=== PATIENT | female | born 1970 | race African-American/Black ===

== ENCOUNTER 2019-05-28 00:19 | Emergency (ER) | payer BC ==
[~2019-05-28] VITALS: Ht 175.3 cm; Wt 88.0 kg
[2019-05-28] MEDS ORDERED: EXCEDRIN MIGRA1 EAC1 PO (00:33)
[2019-05-28 01:07] LABS: ABSOLUTE NEUTROPHILS 1.6 thou/uL (1.4-8.2); BASOPHILS 1.4 % (0.0-2.0); EOSINOPHILS 5.3 % (0.0-3.0); HEMATOCRIT 38.8 % (37.0-47.0); HEMOGLOBIN 12.7 gm/dL (12.0-15.0); LYMPHOCYTES 50.1 % (24.0-44.0); MCH 28.4 pg (26.0-34.0); MCHC 32.7 g/dL (28.0-37.0); MCV 86.8 fL (80.0-100.0); PLATELET COUNT 269 thou/uL (150-400); POLYS 35.2 % (36.0-66.0); RBC 4.47 mil/uL (4.20-5.00); RDW 13.6 % (10.5-14.5); WBC 4.5 thou/uL (4.0-11.0)
[2019-05-28 01:19] LABS: ANION GAP 7 mmol/L (7-16); BUN 11 mg/dL (7-18); CALCIUM 9.2 mg/dL (8.5-10.1); CHLORIDE 102 mmol/L (98-107); CO2 31 mmol/L (21-32); CREATININE 0.8 mg/dL (0.6-1.0); GLUCOSE 89 mg/dL (74-106); SODIUM 140 mmol/L (136-145); TROPONIN-I <0.06 ng/mL (<0.06)
[2019-05-28 01:29] LABS: POTASSIUM 2.8 mmol/L (3.5-5.1)
[2019-05-28] MEDS ORDERED: ZOFRAN ODT4 MG PO (01:39)
[2019-05-28 01:53] VITALS: BP 136/84
--- NOTE | 2019-05-28 08:01 | EKG ---
[address] [address] ELECTROCARDIOGRAM REPORT Name: RENETTA COLINDRES [facility] Room #: [facility]#: [id number] Admission: 05/28/19 Attend Phys: Discharge: 05/28/19 Date of : 74 Report #: [id number] THIS REPORT FOR: //name// [facility] ED Test Date: 2019-05-28 Test Time: 00:35:46 Pat Name: RENETTA COLINDRES Department: Room: Gender: F [employer]: JERRI : 1970 Requested By: Ziggy Noe Order Number: [id number] MD: Mika Benavidez Measurements Intervals [place] Rate: 62 P: 51 OR: 187 QRS: -13 QRSD: 95 T: 44 QT: 410 QTc: 417 Interpretive Statements Sinus rhythm Normal tracing No previous ECG available for comparison Electronically Signed On 05-28-2019 8:01:13 [employer] by Mika Benavidez [email or web address] <ELECTRONICALLY SIGNED> By: Mika Benavidez MD, [facility] 05/28/19 0801 0035 0035 Mika Benavidez MD, FACC /EPI
== END 2019-05-28 01:54 | disposition home or self-care (01) ==
LOC: ER 00:19
PROVIDERS: Emergency Medicine
DX: R07.9 Chest pain, unspecified (principal); E87.6 Hypokalemia; R11.2 Nausea with vomiting, unspecified; F17.210 Nicotine dependence, cigarettes, uncomplicated; Z88.0 Allergy status to penicillin